=== PATIENT | female | born 1950 | race African-American/Black ===

== ENCOUNTER 2021-05-23 15:03 | Inpatient (IN) | payer BC, OTHER ==
[~2021-05-23] VITALS: Ht 154.9 cm; Wt 50.8 kg
[~2021-05-23 15:03] MED LIST: Aspirin 81 Mg Tablet Chew PO; FLEXERIL PO; GLIPIZIDE 5 MG PO; LIPITOR 20 MG PO; Lisinopril 10 Mg Tablet PO; METFORMIN; Metformin Hcl PO; NORCO 5-325 TA1 EACH PO; Pantoprazole Sodium 40 Mg Tablet PO; QUINU5 PD; [UNRECOGNIZED DRUG - REMARK]
[2021-05-23 15:06] VITALS: BP 97/60
[2021-05-23 16:10] LABS: ABSOLUTE NEUTROPHILS 12.2 thou/uL (1.4-8.2); BASOPHILS 0.3 % (0.0-2.0); EOSINOPHILS 0.8 % (0.0-3.0); HEMATOCRIT 39.4 % (37.0-47.0); HEMOGLOBIN 12.6 gm/dL (12.0-15.0); MCH 26.5 pg (26.0-34.0); MCV 82.8 fL (80.0-100.0); MONOCYTES 3.3 % (1.0-8.0); PLATELET COUNT 299 thou/uL (150-400); POLYS 85.6 % (36.0-66.0); RBC 4.75 mil/uL (4.20-5.00); RDW 16.1 % (10.5-14.5); WBC 14.3 thou/uL (4.0-11.0)
[2021-05-23 16:19] LABS: CALCIUM 9.4 mg/dL (8.5-10.1); CREATININE 3.9 mg/dL (0.6-1.0); POTASSIUM 3.3 mmol/L (3.5-5.1)
[2021-05-23 16:25] LABS: ALBUMIN 3.9 g/dL (3.4-5.0); TOTAL PROTEIN 8.1 g/dL (6.4-8.2)
[2021-05-23 18:27] LABS: URINE BILIRUBIN 1+ (Negative); URINE BLOOD TRACE (Negative); URINE CLARITY CLEAR; URINE COLOR YELLOW; URINE GLUCOSE-RANDOM* 1+ (Negative); URINE KETONES NEGATIVE (Negative); URINE LEUKOCYTES-REFLEX NEGATIVE (Negative); URINE NITRITE-REFLEX NEGATIVE (Negative); URINE PROTEIN (DIPSTICK) 2+ (Negative); URINE SPECIFIC GRAVITY 1.015 (1.005-1.035); URINE UROBILINOGEN 0.2 E.U./dl (0.2-1.0)
[2021-05-23 18:30] LABS: ICTOTEST (BILI CONFIRMATORY) Positive (Negative)
[2021-05-23 18:35] LABS: CASTS None Seen /LPF (None Seen); SQUAMOUS 0-3 Few /LPF (0-3); URINE WBC-REFLEX 6-15 Few /HPF (0-5)
[2021-05-23 18:36] LABS: URINE RBC 1-2 Rare /HPF (NONE SEEN)
[2021-05-23 18:37] LABS: BACTERIA-REFLEX 1-9 Few /HPF (None Seen); CRYSTALS None Seen /LPF (None Seen); WBC CLUMPS Few (None Seen)
[2021-05-23] MEDS ORDERED: ATORVASTATIN CA20 MG PO (19:38)
[2021-05-23] MEDS ORDERED: LEVOTHYROXINE50 MCG PO (19:39)
[2021-05-23] MEDS ORDERED: METFORMIN HCL500 M1 PO (19:44)
[2021-05-23] MEDS ORDERED: LISINOPRIL10 MG PO (19:44)
[2021-05-23] MEDS ORDERED: GLIPIZIDE 10 MG10 MG PO (19:45)
[2021-05-23] MEDS ORDERED: AMLODIPINE BESY10 MG PO (19:46)
[2021-05-23 19:47] VITALS: BP 109/60
[2021-05-23 19:56] VITALS: BP 109/60
[2021-05-23 20:18] VITALS: BP 123/72
[2021-05-24 04:44] VITALS: BP 98/60
[2021-05-24 05:41] LABS: CHOLESTEROL 109 mg/dL (<200); HDL CHOLESTEROL 35 mg/dL (>40); LDL CHOLESTEROL 53 mg/dL (<100); TC:HDL 3.1 Ratio (Not establshd); TRIGLYCERIDE 109 mg/dL (<150); VLDL 22 mg/dL (<40)
[2021-05-24 05:48] LABS: SERUM ASSESSMENT Clear
[2021-05-24 06:08] LABS: CALCIUM 8.6 mg/dL (8.5-10.1); POTASSIUM 3.1 mmol/L (3.5-5.1)
[2021-05-24 07:20] VITALS: BP 106/62
--- NOTE | 2021-05-24 07:22 | EKG ---
[address] [address] ELECTROCARDIOGRAM REPORT Name: MARTI HERNANDEZ Room #: 443-P ADM IN M.R.#: [id number] Admission: 05/23/21 Attend Phys: Riley Lucia MD Discharge: Date of : 50 Report #: [id number] [facility] ED Test Date: 2021-05-23 Test Time: 16:28:24 Pat Name: MARTI HERNANDEZ Department: Room: 443 Gender: F [employer]: : 1950 Requested By: Pablo Urias Order Number: [id number] MD: Pedro Barlow Measurements Intervals [place] Rate: 81 P: 51 CA: 200 QRS: 20 QRSD: 99 T: 60 QT: 391 QTc: 454 Interpretive Statements Sinus rhythm Compared to ECG 01/09/2012 11:14:58 First degree AV block no longer present Prolonged QT interval no longer present Electronically Signed On 05-24-2021 7:22:24 CDT by Pedro Barlow [email or web address] <ELECTRONICALLY SIGNED> By: Pedro Barlow MD, [facility] 05/24/21 0722 D: [id number] Pedro Barlow MD, FAC /EPI
[2021-05-24 08:22] LABS: ALBUMIN 3.2 g/dL (3.4-5.0); TOTAL BILIRUBIN 2.5 mg/dL (0.2-1.0)
[2021-05-24 15:45] VITALS: BP 122/70
[2021-05-24 20:39] VITALS: BP 122/76
[2021-05-25 00:06] LABS: GLYCOHEMOGLOBIN (HGB A1C) 5.9 % (4.8-5.6)
== END 2021-05-24 22:30 | disposition short-term general hospital (02) | DRG 445 ==
LOC: ER 15:03 → EROBS 19:10 → 4S 19:10
PROVIDERS: Emergency Medicine; Nurse Practitioner Family; ADMIT Internal Medicine; ATTEND Internal Medicine
DX: K80.01 Calculus of gallbladder with acute cholecystitis with obstruction (principal); N17.9 Acute kidney failure, unspecified; E86.1 Hypovolemia; I10 Essential (primary) hypertension; E78.5 Hyperlipidemia, unspecified; K21.9 Gastro-esophageal reflux disease without esophagitis; E03.9 Hypothyroidism, unspecified; R74.01 Elevation of levels of liver transaminase levels; E11.65 Type 2 diabetes mellitus with hyperglycemia; E86.0 Dehydration; Z88.8 Allergy status to other drugs, medicaments and biological substances
CPT/HCPCS: 10102